=== PATIENT | female | born 1985 | race Caucasian/White ===

== ENCOUNTER → 2017-01-20 | Outpatient (CLI) | payer OTHER ==
[~2017-01-20] MED LIST: AMOXICILLIN500 MG PO; ANAPROX DS550 MG PO; CLARITIN-D 10 M1 T21 PO; HYDROCODONE BIT1 T11 PO; NAPROSYN500 MG PO
== END | disposition home or self-care (01) ==
LOC: US 15:00
DX: N92.1 Excessive and frequent menstruation with irregular cycle (principal); Z97.5 Presence of (intrauterine) contraceptive device

== ENCOUNTER 2017-09-09 07:45 | Emergency (ER) | payer OTHER ==
[~2017-09-09] VITALS: Ht 152.4 cm; Wt 45.4 kg
[2017-09-09] MEDS ORDERED: CYCLOBENZAPRINE10 MG PO (10:04)
[2017-09-09] MEDS ORDERED: PREDNISONE50 MG PO (10:04)
== END 2017-09-09 10:21 | disposition home or self-care (01) ==
LOC: ED 07:45
DX: S16.1XXA Strain of muscle, fascia and tendon at neck level, initial encounter (principal); X50.1XXA Overexertion from prolonged static or awkward postures, initial encounter; Y93.89 Activity, other specified; Y92.89 Other specified places as the place of occurrence of the external cause; Y99.9 Unspecified external cause status

== ENCOUNTER 2018-12-08 16:29 | Emergency (ER) | payer OTHER ==
[~2018-12-08] VITALS: Ht 152.4 cm; Wt 47.6 kg
[~2018-12-08 16:29] MED LIST changes: +CYCLOBENZAPRINE10 MG PO; +PREDNISONE50 MG PO
[2018-12-08] MEDS ORDERED: PREDNISONE50 MG PO (18:05)
[2018-12-08] MEDS ORDERED: ANTIFUNGAL113 GM T (18:05)
== END 2018-12-08 18:14 | disposition home or self-care (01) ==
LOC: ED 16:29
DX: L25.9 Unspecified contact dermatitis, unspecified cause (principal); B35.4 Tinea corporis; F17.200 Nicotine dependence, unspecified, uncomplicated

== ENCOUNTER 2019-01-24 19:23 | Emergency (ER) | payer OTHER ==
[~2019-01-24] VITALS: Ht 152.4 cm; Wt 47.6 kg
[~2019-01-24 19:23] MED LIST changes: +ANTIFUNGAL113 GM T
[2019-01-24] MEDS ORDERED: SEPTDS PO (19:26)
[2019-01-24] MEDS ORDERED: KEFLEX500 M1 PO (19:27)
[2019-01-24] MEDS ORDERED: CLEOCIN HCL150 MG PO (20:27)
[2019-01-24] MEDS ORDERED: IBU800 MG PO (20:27)
== END 2019-01-24 20:30 | disposition home or self-care (01) ==
LOC: ED 19:23
DX: L02.811 Cutaneous abscess of head [any part, except face] (principal); Z48.01 Encounter for change or removal of surgical wound dressing; F17.200 Nicotine dependence, unspecified, uncomplicated; Z79.2 Long term (current) use of antibiotics

== ENCOUNTER 2019-02-27 14:58 | Emergency (ER) | payer OTHER ==
[~2019-02-27] VITALS: Ht 152.4 cm; Wt 47.6 kg
[~2019-02-27 14:58] MED LIST changes: +CLEOCIN HCL150 MG PO; +IBU800 MG PO; +KEFLEX500 M1 PO; +SEPTDS PO
[2019-02-27] MEDS ORDERED: AMOXICILLIN500 M2 PO (15:47)
== END 2019-02-27 16:02 | disposition home or self-care (01) ==
LOC: ED 14:58
DX: J02.9 Acute pharyngitis, unspecified (principal); Z02.79 Encounter for issue of other medical certificate; Z79.2 Long term (current) use of antibiotics; Z79.899 Other long term (current) drug therapy

== ENCOUNTER → 2020-11-28 | Outpatient (CLI) | payer OTHER ==
[~2020-11-28] MED LIST changes: +AMOXICILLIN500 M2 PO
== END | disposition home or self-care (01) ==
LOC: RAD 13:01
PROVIDERS: ATTEND Chiropractor Orthopedic
DX: M43.8X6 Other specified deforming dorsopathies, lumbar region (principal); M99.03 Segmental and somatic dysfunction of lumbar region